=== PATIENT | female | born 1965 | race African-American/Black ===

== ENCOUNTER 2019-05-26 15:00 | Observation (INO) | payer OTHER ==
--- NOTE | 2019-05-26 16:19 | RAD ---
EXAM: Chest one view: HISTORY: Chest pain COMPARISON: None FINDINGS: Heart size: Within normal limits. Lungs: Clear of acute process. No evidence for pneumonia, pleural effusion, acute edema, or pneumothorax, or other significant acute process. IMPRESSION: No significant acute intrathoracic disease.
[2019-05-26] MEDS ORDERED: Acetaminophen 500 MG TAB ONE (16:34)
[2019-05-26 16:40] LABS: #Basophils 0.1 thou/uL (0.0-0.2); #Eosinphils 0.1 thou/uL (0.0-0.7); #Lymphocytes 5.1 thou/uL (1.20-3.40); #Monocytes 0.9 thou/uL (0.11-0.59); #Neutrophils 6.3 thou/uL (1.40-6.50); %Basophils 0.5 % (0.0-1.0); %Eosinophils 0.7 % (0.0-10.0); %Monocytes 7.1 % (0.0-10.0); %Neutrophils 50.7 % (42.0-75.0); Hemoglobin 15.8 g/dL (12.0-16.0); Mean Corpuscular HGB CONC 34.3 g/dL (32.0-36.0); Mean Corpuscular Hemoglobin 31.3 pg (27.0-31.0); Mean Corpuscular Volume 91.3 fL (78.0-98.0); Mean Platelet Volume 7.9 fL (7.4-10.4); Platelet Count 225 thou/uL (130-400); RBC Distribution Width 12.2 % (11.5-14.5); Red Blood Cell (RBC) Count 5.06 mill/uL (4.20-5.40); White Blood Cell (WBC) Count 12.4 thou/uL (4.8-10.8)
[2019-05-26] MEDS ORDERED: ISOVUE-370 76%-LOCM 1 ML ONE (16:45)
[2019-05-26 17:01] LABS: ALT (SGPT) 53 U/L (8-55); AST (SGOT) 34 U/L (5-34); Albumin 4.3 g/dL (3.5-5.0); Alkaline Phosphatase 137 U/L (40-150); Anion Gap 13 mmol/L (10-20); BUN (Urea Nitrogen) 10 mg/dL (9.8-20.1); Bilirubin, Total 0.8 mg/dL (0.2-1.2); Calc. Creatinine Clearance 0 mL/min (70-130); Calcium 9.7 mg/dL (7.8-10.44); Carbon Dioxide 22 mmol/L (22-29); Chloride 108 mmol/L (98-107); Estimated GFR-MDRD Greater than 90; Globulin 3.6 g/dL (2.4-3.5); Glucose 72 mg/dL (70-105); Potassium 3.9 mmol/L (3.5-5.1); Protein, Total 7.9 g/dL (6.0-8.3); Sodium 139 mmol/L (136-145)
[2019-05-26] MEDS ORDERED: Nitroglycerin 2% Ointment 1 INCH/1 GM Packet ONE (18:03)
--- NOTE | 2019-05-26 19:19 | CT ---
CTA OF THE THORAX UTILIZING IV CONTRAST, PE PROTOCOL AND 3D REFORMATTED IMAGIN05/26/19 INDICATION: 53-year-old female with left sided chest pain radiating into the left arm. COMPARISON: None. FINDINGS: No central or segmental pulmonary embolus is present. The lungs are clear. No pleural effusion or pne umothorax is evident. There is a small sub 4 mm pulmonary nodule within the lateral right middle lobe . No enlarged lymph nodes are evident. The visualized upper abdomen reveals no definite acute abnorma lity. No acute osseous abnormality is evident. IMPRESSION: No central or segmental pulmonary embolus. POS: BH
[2019-05-26 22:02] VITALS: BMI 34.4
[2019-05-26 22:03] LABS: Troponin I Less than 0.010 ng/mL (< 0.028)
[2019-05-26] MEDS ORDERED: Acetaminophen 325 MG TAB PO PRN (22:13)
[2019-05-26] MEDS ORDERED: hydrALAZINE 20 MG/ML VIAL SLOW IVP PRN (22:14)
[2019-05-26 22:19] LABS: Troponin I Less than 0.010 ng/mL (< 0.028)
[2019-05-26] MEDS: traMADol HCl 50 MG TAB PO PRN (22:23)
[2019-05-27] MEDS ORDERED: Ondansetron ODT 4 MG TAB PO PRN (00:07)
[2019-05-27] MEDS ORDERED: Ondansetron PF 4 MG/2 ML Vial IVP PRN (00:07)
[2019-05-27] MEDS ORDERED: Nicotine 14 MG PATCH TD SCH (00:15)
[2019-05-27] MEDS ORDERED: Amlodipine 5 MG TAB PO SCH ×3 (00:15→09:00)
--- NOTE | 2019-05-27 01:22 | HP ---
TIME OF EVALUATION: The patient was seen at 11:00 p.m. PRIMARY CARE PHYSICIAN: None. CHIEF COMPLAINT: Nausea, vomiting, and headache. HISTORY OF PRESENT ILLNESS: Ms. Short is a 53-year-old woman, with no past medical history, who presents to the emergency department complaining of nausea, vomiting, and a headache. The patient states she 1st began to feel unwell yesterday and experienced nausea, vomiting, as well as diarrhea. She reports having a low-grade temperature, but is unsure how high it was. This morning, she woke up with a headache and took 2 Aleve and was able to go back to sleep. When she woke up again, she no longer had a headache. She tried to eat and was unable to tolerate her food. She reports vomiting excessively. The patient states this prompted her to seek medical attention and she was seen at the [facility]. Reports having her blood pressure checked and states it was 180 systolic, 15 minutes later it was checked again and it had risen to 203 systolic. She was therefore advised to come to the emergency department and was sent via EMS. There was mention of chest pain per the ED report, however, the patient is adamant that she has in no time experienced any chest pain yesterday nor today, nor any chest pain reported while in the emergency department. She apparently was given nitroglycerin by EMS and per the ED note, she had improvement in chest pain. However, the patient states once again that she did not experience any chest pain. She underwent an EKG in the emergency department showing normal sinus rhythm with a heart rate of [address] changes or T-wave abnormalities. The patient was given Nitro-Bid for her elevated blood pressure and Tylenol 1 g for her headache while in the emergency department. She had laboratory studies done notable for slightly elevated white count of 12.4 and had a D-dimer that was elevated at 0.47. Renal function normal, and her potassium also normal. Troponin was done and negative. LFTs unremarkable. She underwent a chest x-ray showing no significant acute intrathoracic disease. Given the elevated D-dimer, she had a CT angiogram of the chest done showing no central or segmental pulmonary embolus. There was mention of a small sub 4 mm pulmonary nodule within the lateral right middle lobe with no enlarged lymph nodes. This will likely require followup imaging as an outpatient to assess for any changes. REVIEW OF SYSTEMS: She denies having any dizziness. No slurred speech or vision changes. Reports having diffuse abdominal discomfort associated with the excessive vomiting. She states her diarrhea has resolved. She had a normal bowel movement this morning. 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 Denies having any hematemesis. No further vomiting since arriving to the emergency department. She has had something to eat and was able to tolerate it without difficulty. Denies having issues with her blood pressure in the past. Is not on any medications for anything. ALLERGIES: NO KNOWN DRUG ALLERGIES. THE PATIENT DOES STATE, HOWEVER, THAT SHE DOES NOT TAKE CODEINE DUE TO INTOLERANCE. CURRENT MEDICATIONS: None. PAST MEDICAL HISTORY: History of hepatitis C. PAST SURGICAL HISTORY: Previous tubal ligation bilaterally. SOCIAL HISTORY: She reports smoking half a pack a day. Also reports smoking marijuana occasionally. No other illicit drug use. Denies having any history of heavy alcohol abuse. PHYSICAL EXAMINATION: GENERAL: The patient appears well developed, well nourished, and is in no acute distress. She was found sleeping in bed. VITAL SIGNS: Temperature 98.4, pulse 69, respirations 17, O2 saturation 96% on room air, blood pressure 186/90. HEENT: Normocephalic and atraumatic. Pupils are equal, round, and reactive to light. Sclerae without icterus. Oropharynx is clear. NECK: Supple. LUNGS: Clear to auscultation. CARDIAC: Regular rate and rhythm. No chest wall tenderness. ABDOMEN: Mild diffuse discomfort with palpation, but no guarding or rigidity. No renal angle tenderness. EXTREMITIES: No lower leg swelling or edema. NEUROLOGIC: Alert and oriented x3. No focal deficits. SKIN: Without rash or jaundice. INVESTIGATIONS: As mentioned above in HPI. IMPRESSION AND PLAN: Ms. Short is a 53-year-old woman with no known past medical history who developed nausea, vomiting, and diarrhea yesterday, felt nauseous today and woke up with headache, which was relieved with 2 Aleve at home; however, began to vomit excessively when attempting to eat lunch. She was noted to be hypertensive at the [facility] with a systolic blood pressure of 203. Treated with Nitro-Bid in the emergency department. Blood pressure remains elevated at 186/90 on arrival to the floor. An order was placed for hydralazine 10 mg IV p.r.n. for systolic blood pressure greater than 180. However, once the patient was given tramadol for her headache and blood pressure was rechecked, it was improved to 151/68. Hydralazine therefore not given and I have started the patient on amlodipine 5 mg p.o., which we will continue daily. Further recommendations as per Day Team. With regard to reported chest pain, the patient is adamant that she did not experience any chest pain at any time. We will therefore hold off any further cardiac investigations, but we will continue to trend her troponins. White count slightly elevated and given the GI symptoms, it is possible she might have a viral gastroenteritis. We will continue to monitor. She remains febrile at this present time. We will add on a lactic acid to her labs. We will also add on a magnesium. Given the mild abdominal discomfort, we will add on a lipase as well. We will give gentle hydration in the event that she may undergo any investigations with contrast and given the fact that she has had excess vomiting and some diarrhea yesterday. Renal function is normal at this present time. Code status full. Her surrogate decision maker is Taj Urrutia. The patient's case was discussed with Dr. Borrero, who agrees with plan of care as described above. Job ID: [id number]
[2019-05-27 01:56] LABS: Troponin I Less than 0.010 ng/mL (< 0.028)
[2019-05-27] MEDS: Acetaminophen 325 MG TAB PO PRN ×2 (05:19→13:44)
--- NOTE | 2019-05-27 08:59 | PDOC.HOSPP ---
- Subjective Encounter Date: 05/27/19 Encounter Time: 08:56 Subjective: Patient admitted with headaches and nausea,vomiting and diarrhea. Patient has been inconsistent with her story. told me that she developed abdominal pain on after drinking a sweet tea, which was followed by nausea, vomiting and diarrhea next day. Headache only started yesterday morning on waking up. She also admitted to left sided chest discomfort but she thought it was gas and resolved after she pass flatus. father and mother had HTN and CAD/VT. patient is a current everyday smoker. Nausea, vomiting and diaarrhea have resolved but headache persists. - Objective Vital Signs & Weight: Vital Signs (12 hours) Temp Pulse Resp BP BP Pulse Ox 05/27/19 07:06 97.7 F 68 20 188/101 H 99 05/27/19 04:00 98.6 F 60 14 153/76 H 98 05/27/19 01:14 67 141/70 H 05/27/19 01:07 67 141/70 H 05/26/19 23:12 63 151/68 H 05/26/19 22:23 181/89 H 05/26/19 21:50 98.4 F 69 17 186/90 H 96 Weight Weight 188 lb 1.6 oz I&O: 05/26/19 05/27/19 05/28/19 06:59 06:59 06:59 Intake Total 750 Output Total 500 Balance 250 Result Diagrams: 05/26/19 16:28 05/26/19 16:28 Hospitalist ROS - Medication Medications: Active Medications Generic Name Dose Route Start Last Admin Trade Name Freq PRN Reason Stop Dose Admin Acetaminophen 650 mg 05/27/19 00:07 05/27/19 05:19 Tylenol PO 650 mg Q4H PRN Administration Headache/Fever/Mild Pain (1-3) Nicotine 14 mg 05/27/19 00:15 05/27/19 01:10 Nicoderm Patch TD Not Given Q24HR STEPHANIE Tramadol HCl 50 mg 05/26/19 22:13 05/26/19 22:23 Ultram PO 50 mg Q4H PRN Administration Pain - Exam General Appearance: awake alert Eye: PERRL, anicteric sclera ENT: normocephalic atraumatic Neck: supple, symmetric Heart: RRR Respiratory: no wheezes, no ronchi, normal chest expansion Respiratory - other findings: fair air entry with scattered transmitted sound. Gastrointestinal: soft, non-tender, non-distended, normal bowel sounds Extremities: no cyanosis, no edema Neurological: CN's grossly intact, no focal deficits Psychiatric: normal affect, A&O x 3 Hosp A/P (1) Uncontrolled hypertension Code(s): I10 - ESSENTIAL (PRIMARY) HYPERTENSION Status: Acute (2) Chest pain Code(s): R07.9 - CHEST PAIN, UNSPECIFIED Status: Acute (3) Headache Code(s): R51 - HEADACHE Status: Acute (4) Acute gastroenteritis Code(s): K52.9 - NONINFECTIVE GASTROENTERITIS AND COLITIS, UNSPECIFIED Status : Acute (5) Tobacco abuse disorder Code(s): Z72.0 - TOBACCO USE Status: Acute - Plan increase amlodipine to 10 mg daily. get stress test. Analgesic as needed for headache
[2019-05-27] MEDS ORDERED: Famotidine/PF 20 mg/2ml Vial SLOW IVP SCH (09:00)
[2019-05-27] MEDS ORDERED: Amlodipine 10 MG TAB PO SCH (09:00)
[2019-05-27] MEDS ORDERED: Famotidine 20 MG TAB PO SCH (09:00)
[2019-05-27 11:36] LABS: #Basophils 0.1 thou/uL (0.0-0.2); #Eosinphils 0.1 thou/uL (0.0-0.7); #Lymphocytes 3.8 thou/uL (1.20-3.40); #Neutrophils 6.1 thou/uL (1.40-6.50); %Basophils 0.6 % (0.0-1.0); %Eosinophils 0.8 % (0.0-10.0); %Lymphocytes 34.4 % (21.0-51.0); %Monocytes 8.7 % (0.0-10.0); %Neutrophils 55.5 % (42.0-75.0); Hemoglobin 16.1 g/dL (12.0-16.0); Mean Corpuscular HGB CONC 33.9 g/dL (32.0-36.0); Mean Corpuscular Hemoglobin 30.4 pg (27.0-31.0); Mean Corpuscular Volume 89.7 fL (78.0-98.0); Mean Platelet Volume 7.8 fL (7.4-10.4); Platelet Count 229 thou/uL (130-400); RBC Distribution Width 12.2 % (11.5-14.5); Red Blood Cell (RBC) Count 5.29 mill/uL (4.20-5.40); White Blood Cell (WBC) Count 10.9 thou/uL (4.8-10.8)
--- NOTE | 2019-05-27 11:41 | NM ---
NUCLEAR MEDICINE CARDIAC MYOCARDIAL PERFUSION SPECT EJECTION FRACTION STUDY WALL MOTION CINE: DATE: 05/27/2019 HISTORY: 53-year-old female presents with chest pain TECHNIQUE: Number of days: 1 Rest study: Not performed Pharmacologic stress: Adenosine dose: 47.6 mg Stress study: Technetium 99m-sestamibi (Cardiolite) dose: 32.9 mCi FINDINGS: CARDIAC (MYOCARDIAL PERFUSION) SPECT There are no significant myocardial perfusion defects. EJECTION FRACTION STUDY Left ventricular EF = 54 % WALL MOTION CINE Normal IMPRESSION: No evidence of myocardial ischemia.
[2019-05-27 12:05] LABS: Anion Gap 14 mmol/L (10-20); BUN (Urea Nitrogen) 10 mg/dL (9.8-20.1); Calc. Creatinine Clearance 131 mL/min (70-130); Calcium 9.8 mg/dL (7.8-10.44); Carbon Dioxide 21 mmol/L (22-29); Chloride 105 mmol/L (98-107); Estimated GFR-MDRD Greater than 90; Glucose 80 mg/dL (70-105); Potassium 3.9 mmol/L (3.5-5.1); Sodium 136 mmol/L (136-145)
[2019-05-27 14:29] VITALS: TEMP 97.6
[2019-05-27] MEDS: traMADol HCl 50 MG TAB PO PRN (15:57)
[2019-05-27 16:18] VITALS: BP 133/89
[2019-05-27] MEDS ORDERED: ADENOSINE 60 MG/20 ML VIAL ONE (17:07)
--- NOTE | 2019-05-27 17:49 | PDOC.EVN ---
Event Note - Event Note Event Note: Discharge summary dictated. # [id number]
--- NOTE | 2019-05-28 07:16 | DIS ---
DATE OF ADMISSION: 05/26/2019 DATE OF DISCHARGE: 05/27/2019 PRIMARY CARE PHYSICIAN: None. DISCHARGE DIAGNOSES: 1. Uncontrolled hypertension. 2. Atypical chest pain. 3. Headaches. 4. Resolving acute gastroenteritis. 5. Tobacco abuse disorder. 6. Nausea and vomiting. HOSPITAL COURSE: A 53-year-old female admitted with headaches and nausea, vomiting, and diarrhea. The patient reportedly developed abdominal pain after drinking which was followed by nausea, vomiting, and diarrhea next day. On the day of presentation, the patient reportedly woke up with headaches and also had some chest discomfort. She subsequently presented to the ED where she was treated with aspirin and sublingual nitroglycerin with improvement. She was also found to have uncontrolled hypertension associated with persistence of headaches. Acute myocardial infarction was ruled out with serial troponin. The patient was treated with amlodipine with improvement in blood pressure and subsequently had stress test which was negative. She remained stable with improved blood pressure and improved symptoms and was subsequently discharged home. DISCHARGE DISPOSITION: Home. DISCHARGE CONDITION: Improved. DISCHARGE MEDICATIONS: 1. Acetaminophen 650 q.6 p.r.n. for pain. 2. Amlodipine 10 mg p.o. daily. FOLLOWUP: The patient was advised to follow up with PCP of her choice in 3 to 7 days. Job ID: [id number]
== END 2019-05-27 18:34 | disposition home or self-care (01) ==
LOC: ERS 15:00 → ERHOLD 20:09 → 2SW 21:41
PROVIDERS: ADMIT Internal Medicine; ATTEND Internal Medicine
DX: R07.89 Other chest pain (principal); I10 Essential (primary) hypertension; F17.210 Nicotine dependence, cigarettes, uncomplicated; K52.9 Noninfective gastroenteritis and colitis, unspecified
CPT/HCPCS: 36415; 71045; 71275; 78452; 80048; 80053; 83690; 83735; 84484; 85025; 85379; 93005; 93017; 96374; A9500; G0378; J0153; J2405; Q9966